=== PATIENT | male | born 1995 | race Caucasian/White ===

== ENCOUNTER → 2020-04-18 11:25 | Outpatient (BNVA) | payer OTHER, SELFPAY | PROVIDERS: PCP Internal Medicine; Visit Provider Surgery | DX: Z76.89 Persons encountering health services in other specified circumstances (principal) ==

== ENCOUNTER 2020-05-21 06:56 | Day surgery (SDC) | payer OTHER, SELFPAY ==
[2020-05-15 19:23] VITALS: BMI 33.6
--- NOTE | 2020-05-20 11:04 | P.CONAN_ITS ---
Documented by User: Valeria Bai 05/20/20 11:05 HPI - Anesthesia Eval Consult details Narrative: 25yo M for Excision Pilonidal Cyst, Sacrococcygeal Area [facility] Past Medical History Medical History Deviated nasal septum GERD (gastroesophageal reflux disease) Sacrococcygeal pilonidal cyst Family History Family History Father History of diabetes mellitus Surgical History Surgical History History of tonsillectomy History of wisdom tooth extraction Social History Social History Smoking Status: Never smoker Second Hand Smoke Exposure: No Use of substances other than those prescribed or required for medical reasons: No Advance Directives: No Advance Directives Information Provided: No Advance Directives on File: No Recently lost weight without trying: No Meds Allergies Allergy/AdvReac Type Severity Reaction Status Date / Time No Known Allergies Allergy Verified 04/18/20 11:37 Home Medications Medication Instructions Recorded Confirmed Type mupirocin 2 % topical ointment 1 applic TOPICAL BID 04/18/20 05/15/20 History Exam Exam Date and Time: May 20, 2020 1104 Height,Weight and Vital Signs: Height 6 ft 1 in Weight 115.666 kg Pertinent Lab Results Pertinent Lab Results: Laboratory Tests 04/04/20 04/04/20 16:30 16:30 WBC 8.0 Hgb 15.0 Hct 43.3 Plt Count 306 Sodium 140 Potassium 3.9 Chloride 106 BUN 14 Creatinine 0.87 Assessment and Plan Assessment Anesthesia Assessment: Chart Reviewed Documented by User: Zoë Trammell 05/21/20 08:14 [facility] Past Medical History Medical History Deviated nasal septum GERD (gastroesophageal reflux disease) Sacrococcygeal pilonidal cyst Family History Family History Father History of diabetes mellitus Surgical History Surgical History History of tonsillectomy History of wisdom tooth extraction Social History Social History Smoking Status: Never smoker Second Hand Smoke Exposure: No Use of substances other than those prescribed or required for medical reasons: No Advance Directives: No Advance Directives Information Provided: No Advance Directives on File: No Recently lost weight without trying: No Meds Allergies Allergy/AdvReac Type Severity Reaction Status Date / Time No Known Allergies Allergy Verified 04/18/20 11:37 Home Medications Medication Instructions Recorded Confirmed Type mupirocin 2 % topical ointment 1 applic TOPICAL BID 04/18/20 05/15/20 History Exam Airway Mallampati Class: II TM Dist: >3cm Neck ROM: Full Assessment and Plan Assessment Anesthesia Assessment: Anesthesia Plan Discussed and Chart Reviewed Final Anesthetic Review NPO: Yes ASA Class: II Final Preanesthetic Review: No Changes in Pt Med Stat, Meds/Allgs Chart Reviewed, Consent Obtained/Reviewed and Anes Risks/Benef Reviewed Patient Risk: Low Procedure Risk: Low Anesthetic Plan Anesthetic Plan: GA Disposition: Standard PACU
[2020-05-21] VITALS (7 sets, daily range): BP systolic 134–146; BP diastolic 74–97; PULSE 69–88; RESP 16–18; TEMP 36.3–36.7; O2SAT 94–98
[2020-05-21] MEDS: Lactated Ringers 1,000 ML 100 ML IVCONT (07:32)
--- NOTE | 2020-05-21 08:32 | P.HPSUR_ITS ---
Pre-Procedural Eval Section B Chief Complaint: Sacrococcygeal Pilonidal Cyst Details of Present Illness: for excision of pilonidal cyst, sacrococcygeal area Relevant Family History (Specify if Yes): No Relevant Social History: None Present Medications: see Short Stay Collaborative assessment Medical History: No relevant PMH Allergies: Allergies Allergy/AdvReac Type Severity Reaction Status Date / Time No Known Allergies Allergy Verified 04/18/20 11:37 Review of Systems Sugical H&P ROS: Negative: Constitution, Cardiovascular, Respiratory, Neurological, Psychiatric, Hem-Onc, Allergic/Immunologic, Gastrointestinal, Genitourinary, Musculoskeletal, Integumentary, Endocrine and Ey es/Ears/Nose/Throat Exam Surgical H&P Exam: Normal: HEENT, Normal: Heart, Normal: Lungs, Normal: Extremities, Normal: Abdomen, Normal: Skin and Normal: Neurological Plan Diagnosis/Plan: Unchanged Patient has been examined and remains a candidate for the planned procedure
[2020-05-21] MEDS: ceFAZolin Sodium/Dextrose,Iso 2 GM/50 ML PIGGYBACK IV (08:37)
--- NOTE | 2020-05-21 09:29 | PM.OP ---
Brief Operative Note Date of procedure: 05/21/20 Pre-op diagnosis: pilonidal cyst sacrococcygeal area Post-op diagnosis: same Procedure: exc of pilonidal cyst Surgeon: Omer Welsh MD Anesthesia: GETA Estimated blood loss (mL): 5 Pathology: other (pilonidal) Condition: stable Disposition: PACU
[2020-05-21] MEDS: oxyCODONE HCl Immed Release 5 MG TABLET PO (10:03)
--- NOTE | 2020-05-21 10:07 | HO.POSTANES ---
Post Anesthesia Evaluation Post Anesthesia Evaluation Vital Signs: Vital Signs Temp Pulse Resp BP Pulse Ox 05/21/20 09:57 76 18 137/87 98 05/21/20 09:49 76 18 136/86 96 05/21/20 09:40 69 18 134/86 94 05/21/20 09:35 70 18 140/97 H 97 05/21/20 09:30 97.9 F 88 16 146/96 H 98 05/21/20 07:13 98.0 F 81 16 140/74 H 98 Anesthesia: General Mental Status: Awake Pain Control: Satisfactory Nausea/Vomiting: None Hydration: Adequate Anesthesia-Related Issues: No Anes. Related Issues
--- NOTE | 2020-05-21 10:23 | OP_ITS ---
SURGEON: Omer Welsh MD INDICATIONS: The patient is a 25-year-old male with note of recurrent pain, swelling, and tenderness on the sacrococcygeal area consistent with a pilonidal cyst. He wanted to proceed with excision. He understood technique of excision, and he was aware of the risks, benefits, and alternatives and had given consent. PREOPERATIVE DIAGNOSIS: Pilonidal cyst, sacrococcygeal area. POSTOPERATIVE DIAGNOSIS: Pilonidal cyst, sacrococcygeal area. PROCEDURE PERFORMED: Excision of pilonidal cyst, sacrococcygeal area. ESTIMATED BLOOD LOSS: COMPLICATIONS: ANESTHESIA: ASSISTANTS: SPECIMENS: DESCRIPTION OF PROCEDURE: He was brought to the operating room, placed in prone position under general anesthesia by laryngeal mask airway. The buttocks were retracted with a wide tape laterally. The sacrococcygeal area prepped in usual sterile fashion. Examination showed multiple sinuses within the midline representing the midline pits. There was note of some mild induration more cephalad to the left of the midline. I marked the planned line of incision to include all the sinuses and all the indurated tissue. I infiltrated the planned line of incision with lidocaine 1%. I made an elliptical incision using blade #15. This was carried down to full-thickness skin and deep subcutaneous fat using electrocautery to excise all the indurated tissue in the sinuses. We carried this down posteriorly until the entire diseased skin and subcutaneous tissue was delivered and sent as specimen. I cauterized the excision site to achieve hemostasis. Once hemostasis was ensured, proceeded to infiltrate the area with Marcaine 0.5% for postop analgesia. The incision site measured about 5 cm long and about 3.5 cm wide. I reapposed the deep subcutaneous layer with Polysorb 3-0 interrupted sutures. I closed the skin with large generous bites using nylon 2-0 vertical mattress sutures alternating with deep bites of the simple sutures. Thick dressings were applied and procedure was completed. The patient tolerated the procedure well. There were no complications noted. Initial and final counts of sponges and instruments were correct. Estimated blood loss was about 5 mL. The patient extubated without difficulty and transferred to the recovery room with stable vital signs. MD MANOLO Oden/BENNETT / [id number]
== END 2020-05-21 10:37 | disposition home or self-care (01) ==
PROVIDERS: PCP Internal Medicine; Visit Provider Surgery
PROC: (CPT 11771; principal; 2020-05-21 08:20)
DX: L05.91 Pilonidal cyst without abscess (principal)
CPT/HCPCS: 11771; 88304; J0690; J1100; J2250; J2405; J3010

== ENCOUNTER → 2020-05-30 09:28 | Outpatient (BNVA) | payer OTHER, SELFPAY | PROVIDERS: PCP Internal Medicine; Referring Provider Internal Medicine; Visit Provider Surgery | DX: Z76.89 Persons encountering health services in other specified circumstances (principal) ==

== ENCOUNTER → 2020-06-12 08:57 | Outpatient (BNVA) | payer OTHER, SELFPAY | PROVIDERS: PCP Internal Medicine; Visit Provider Surgery | DX: Z76.89 Persons encountering health services in other specified circumstances (principal) ==

== ENCOUNTER 2020-07-17 13:01 | Outpatient (REF) | payer OTHER, SELFPAY ==
[2020-07-18 14:52] LABS: Prolactin 7.3 ng/mL (2.0-18.0)
[2020-07-22 14:27] LABS: Testosterone, Total 301 ng/dL (250-1100)
== END 2020-07-17 13:02 | disposition home or self-care (01) ==
LOC: HO.LAB 13:01
PROVIDERS: PCP Internal Medicine; Visit Provider Urology
DX: E29.1 Testicular hypofunction (principal); Z13.9 Encounter for screening, unspecified
CPT/HCPCS: 36415; 81002; 84146; 84403

== ENCOUNTER → 2020-08-08 15:01 | Outpatient (BNVA) | payer OTHER, SELFPAY | PROVIDERS: PCP Internal Medicine; Visit Provider Urology ==

== ENCOUNTER 2021-02-27 09:19 | Outpatient (REF) | payer OTHER, SELFPAY | END 2021-02-27 09:20 | disposition home or self-care (01) | LOC: HO.LAB 09:19 | PROVIDERS: PCP Internal Medicine; Visit Provider Internal Medicine | DX: Z20.822 Contact with and (suspected) exposure to COVID-19 (principal) | CPT/HCPCS: C9803; U0003; U0005 ==

== ENCOUNTER → 2021-06-10 14:32 | Outpatient (BNVA) | payer OTHER, SELFPAY | PROVIDERS: PCP Internal Medicine; Visit Provider Urology ==

== ENCOUNTER 2021-06-24 07:27 | Outpatient (REF) | payer OTHER, SELFPAY ==
[2021-06-26 00:11] LABS: Follicle Stimulating Hormone 2.7 mIU/mL (1.6-8.0); Lutenizing Hormone 2.7 mIU/mL (1.5-9.3); Prolactin 8.8 ng/mL (2.0-18.0)
[2021-06-26 01:37] LABS: Sex Hormone Binding Globulin 13 nmol/L (10-50)
[2021-06-29 20:51] LABS: Testosterone, Free 90.5 pg/mL (35.0-155.0); Testosterone, Total 348 ng/dL (250-1100)
== END 2021-06-24 07:28 | disposition home or self-care (01) ==
LOC: HO.LAB 07:27
PROVIDERS: PCP Internal Medicine; Visit Provider Urology
DX: E29.1 Testicular hypofunction (principal)
CPT/HCPCS: 36415; 83001; 83002; 84146; 84270; 84402; 84403

== ENCOUNTER → 2021-07-15 13:39 | Outpatient (BNVA) | payer OTHER, SELFPAY | PROVIDERS: PCP Internal Medicine; Visit Provider Urology ==

== ENCOUNTER → 2021-07-16 11:12 | Outpatient (BNVA) | payer OTHER, SELFPAY | PROVIDERS: PCP Internal Medicine; Visit Provider Urology ==

== ENCOUNTER → 2021-07-18 09:38 | Outpatient (BNVA) | payer OTHER, SELFPAY | PROVIDERS: PCP Internal Medicine; Visit Provider Urology ==

== ENCOUNTER 2022-06-16 12:20 | Outpatient (REF) | payer OTHER, SELFPAY ==
--- NOTE | ~2022-06-16 | XR_ITS ---
EXAMINATION: XR KNEE, RIGHT XR KNEE, LEFT CLINICAL INFORMATION: Bilateral knee pain COMPARISON: None TECHNIQUE: Right knee is imaged in 6 views. Left knee is imaged in 4 views. The series includes bilateral AP projections with weightbearing. There are a total of 10 views. FINDINGS: Right: No fracture, dislocation, destructive process, or definite suprapatellar effusion. Normal bony mineralization. No joint narrowing or erosive change or chondrocalcinosis. Axial view patella shows no lateralization or tilting. Left: No fracture, dislocation, destructive process, or effusion. Normal bony mineralization. No joint narrowing, erosive change, or chondrocalcinosis. Axial view patella shows no lateralization or tilting. XR/XR knee LT 4V IMPRESSION: -No joint narrowing or erosive change.
--- NOTE | ~2022-06-16 | XR_ITS ---
EXAMINATION: XR KNEE, RIGHT XR KNEE, LEFT CLINICAL INFORMATION: Bilateral knee pain COMPARISON: None TECHNIQUE: Right knee is imaged in 6 views. Left knee is imaged in 4 views. The series includes bilateral AP projections with weightbearing. There are a total of 10 views. FINDINGS: Right: No fracture, dislocation, destructive process, or definite suprapatellar effusion. Normal bony mineralization. No joint narrowing or erosive change or chondrocalcinosis. Axial view patella shows no lateralization or tilting. Left: No fracture, dislocation, destructive process, or effusion. Normal bony mineralization. No joint narrowing, erosive change, or chondrocalcinosis. Axial view patella shows no lateralization or tilting. XR/XR knee RT 4V IMPRESSION: -No joint narrowing or erosive change.
[2022-06-16 14:07] LABS: MANUAL DIFF FLAG NO
[2022-06-16 14:17] LABS: Basophils Absolute Auto 0.1 X10*3/uL (0.0-0.2); Basophils Percent Auto 0.8 % (0-2); Eosinophils Absolute Auto 0.1 X10*3/uL (0.0-0.4); Eosinophils Percent Auto 1.1 % (0-4); Hematocrit 46.9 % (42.0-52.0); Hemoglobin 15.9 g/dl (14.0-18.0); Imm Gran Abs Auto 0.02 X10*3/uL (0.00-0.03); Imm Gran Pct Auto 0.3 % (0.0-0.4); Lymphocytes Absolute Auto 2.5 X10*3/uL (1.2-4.9); Mean Corpuscular HGB Conc 33.9 g/dl (31.0-36.0); Mean Corpuscular Hemoglobin 27.8 pg (27.0-33.0); Mean Platelet Volume 10.3 fL (9.4-12.4); Monocytes Absolute Auto 0.5 X10*3/uL (0.1-1.2); Monocytes Percent Auto 7.3 % (2-11); Neutrophils Absolute Auto 3.9 x10*3/uL (2.0-8.3); Neutrophils Percent Auto 55.5 % (45-73); Platelet Count 307 X10*3/uL (160-400); Red Blood Count 5.72 X10*6/uL (4.60-5.80); White Blood Count 7.1 X10*3/uL (4.8-10.8)
[2022-06-16 14:54] LABS: Alanine Aminotransferase 38 U/L (0-40); Albumin Level 4.9 g/dL (3.5-5.0); Alkaline Phosphatase 57 U/L (39-117); Anion Gap 12 (12-20); Aspartate Amino Transferase 20 U/L (5-37); Blood Urea Nitrogen 13 mg/dL (9-16); Calcium 9.9 mg/dL (8.4-10.2); Carbon Dioxide 23 mmol/L (22-29); Chloride 108 mmol/L (96-108); Cholesterol 183 mg/dL; Estimated Glomerular Filt Rate > 60; Glucose Fasting 91 mg/dL (60-99); HDL Cholesterol 47 mg/dL; LDL Cholesterol Calculated 114 mg/dl; Potassium 4.1 mmol/L (3.3-5.1); Sodium 139 mmol/L (135-145); Total Protein 7.7 g/dL (6.5-8.0); Triglycerides 113 mg/dL
== END 2022-06-16 12:21 | disposition home or self-care (01) ==
LOC: HO.10HDL 12:20
PROVIDERS: Visit Provider Internal Medicine
DX: Z00.00 Encounter for general adult medical examination without abnormal findings (principal); M25.561 Pain in right knee; M25.562 Pain in left knee
CPT/HCPCS: 36415; 73564; 80053; 80061; 85025

== ENCOUNTER 2023-10-11 23:16 | Emergency (ER) | payer OTHER, SELFPAY ==
--- NOTE | ~2023-10-11 | XR_ITS ---
EXAMINATION: XR ANKLE, LEFT CLINICAL INFORMATION: Injury. COMPARISON: None available. TECHNIQUE: Three views of the left ankle. FINDINGS: Significant soft tissue swelling adjacent to the lateral malleolus. No discrete fractures. Equivocal mild asymmetric widening along the lateral aspect of the ankle mortise. No unexpected radiopaque foreign bodies. XR/XR ankle LT 2V IMPRESSION: 1. Equivocal mild asymmetric widening of the lateral aspect of the ankle mortise raising the possibility of ligamentous injury. Recommend correlation with gravity stress radiographic views. 2. Significant soft tissue swelling adjacent to the lateral malleolus.
--- NOTE | ~2023-10-11 | XR_ITS ---
EXAMINATION: XR ANKLE, LEFT CLINICAL INFORMATION: Pain. COMPARISON: Previous of the same day. TECHNIQUE: AP, lateral, and mortise views of the left ankle. FINDINGS: The bone mineralization is normal. The joint spaces are maintained. No fracture is seen. There is moderate lateral soft tissue swelling. XR/XR ankle LT min 3V IMPRESSION: Moderate lateral soft tissue swelling. No fracture is seen.
[2023-10-12 00:15] VITALS: BP 138/69; PULSE 94; RESP 20; TEMP 36.8; O2SAT 97; BMI 30.3
--- NOTE | 2023-10-12 02:51 | ED.LOWEXIN ---
HPI - Extremity Injury (Lower) General Chief Complaint: Extremity Injury, Lower Stated Complaint: ankle inj Time Seen by Provider: 10/12/23 02:45 Source: patient Mode of arrival: wheelchair Limitations: no limitations History of Present Illness HPI Narrative: Patient comes to the emergency room complaining of left ankle pain. Earlier today, patient was playing basketball, states that he jumped up to should a ball, landed with his left foot on someone's foot in his ankle twisted inward. Since then, patient has been able to bear weight. Patient has noticed swelling around the lateral malleolus area. Patient denies any other injury. Related Data Home Medications Medication Instructions Recorded Confirmed mupirocin 2 % topical ointment 1 applic topical BID 04/18/20 07/17/20 Previous Rx's Medication Instructions Recorded ibuprofen 600 mg tablet 600 mg PO Q6H PRN pain #30 tabs 05/21/20 oxycodone-acetaminophen 5 mg-325 1 - 2 tab PO Q4-6H PRN pain #30 05/21/20 mg tablet (Percocet) tabs sildenafil 100 mg tablet (Viagra) 100 mg PO DAILY PRN sexual 04/17/21 activity #30 tabs ibuprofen 600 mg tablet 600 mg PO TID PRN fever or pain 10/12/23 #20 tabs Allergies Allergy/AdvReac Type Severity Reaction Status Date / Time No Known Allergies Allergy Verified 10/12/23 00:15 Review of Systems Review of Systems: Constitutional : No Weight loss, No Fever, No Chills, No Night Sweats, No Fatigue, No Malaise ENT/Mouth : No Hearing loss, No Ear Pain, No Nasal Congestion, No Sinus Pain, No Hoarseness, No sore throat, No Rhinorrhea, No Swallowing Difficulty Eyes: No Eye Pain, No Swelling, No Redness, No Foreign Body, No Discharge, No Vision Changes Cardiovascular : No Chest Pain, No SOB, No Dyspnea on Exertion, No Orthopnea, No Edema, No Palpitations Respiratory : No Cough, No Sputum, No Wheezing, No Smoke Exposure, No Dyspnea Gastrointestinal : No Nausea, No Vomiting, No Diarrhea, No Constipation, No abdominal Pain, No Hematochezia, No Melena Genitourinary : no irregular bleeding, No Dysuria, No Urinary Frequency, No Hematuria, No Urinary Incontinence, No Urgency, No Flank Pain, No Urinary Flow Changes, No Hesitancy Musculoskeletal : Complaining of left ankle pain, No Myalgias, No Joint Swelling Skin : No Skin Lesions, No rash Neuro : No Weakness, No Numbness, No Paresthesias, No Loss of Consciousness, No Dizziness, No Headache Psych : No Anxiety/Panic, No Depression, No SI/HI/AH/VH, No Social Issues, Heme/Lymph: No Bruising, No Bleeding,No Lymphadenopathy Endocrine : No Polyuria, No Polydipsia, No Temperature Intolerance [facility] Past Medical History Medical History Erectile dysfunction Hypogonadism in male GERD (gastroesophageal reflux disease) Deviated nasal septum Sacrococcygeal pilonidal cyst Surgical History History of tonsillectomy History of wisdom tooth extraction Family History Family History Father History of diabetes mellitus Social History Social History Second Hand Smoke Exposure: No Advance Directives: No Advance Directives Information Provided: Yes Physical Exam Vital Signs: Vital Signs: Last Vital Signs Temp 98.3 F 10/12/23 00:15 Pulse 94 10/12/23 00:15 Resp 20 10/12/23 00:15 BP 138/69 10/12/23 00:15 Pulse Ox 97 10/12/23 00:15 O2 Del Method Room Air 10/12/23 00:15 BMI result Body Mass Index 30.3 Const: Other: Appearance: Alert. Oriented X3. No acute distress. Eyes: Pupils equal, round and reactive to light. ENT: Pharynx normal. Neck: Normal inspection. Neck supple. No lymph nodes noted. No crepitus CVS: Normal heart rate and rhythm. Pulses normal. Normal S1 and S2 Respiratory: No respiratory distress. Breath sounds normal. No Wheezing. No rales Abdomen: Soft and nontender. No rigidity. No distention. Skin: Skin warm and dry. Normal skin color. Normal skin turgor. Extremities: Right leg within normal limits, left ankle is swollen, no significant deformity other than the swelling, pain to palpation in the lateral malleolus, mild palpation in the medial malleolus, no pain to palpation over the lateral aspect of the foot or top of the foot. Neuro: Oriented X 3. No motor deficit. No sensory deficit. Moving all extremities. No slurred speech. CN 2 through 12 grossly intact Psych: calm, cooperative, normal affect Course Course Course Narrative: -patient took ibuprofen prior to arrival -patient declined anymore medications here in the ED Medical Decision Making Medical Decision Making MDM Narrative: My interpretation of x-ray: No obvious fracture. However, radiology report concerning for ligamentous injury, widening of the lateral aspect of the ankle mortise. Recommendations: Correlation with gravity stress radiographic views which have been ordered. -x-ray reordered, no fracture, only sprain. Patient instructed to follow-up with orthopedics. -patient was given a dose of p.o. ibuprofen -patient's ankle was Haseeb wrapped -patient brought his own crutches, states that they work well for him, offered new crutches with patient respectfully declined The bone mineralization is normal. The joint spaces are maintained. No fracture is seen. There is moderate lateral soft tissue swelling. XR/XR ankle LT min 3V IMPRESSION: Moderate lateral soft tissue swelling. No fracture is seen. Differential Diagnosis Differential Diagnoses: The differential diagnosis associated with the presentation includes (Ankle sprain, subluxation, fracture, contusion) Independent Interpretation I performed an independent interpretation of an: Plain X-Ray Radiology Impression Discussion of test interpretation with radiology: I have reviewed the radiologist's reading. Radiologist Impression: FINDINGS: Significant soft tissue swelling adjacent to the lateral malleolus. No discrete fractures. Equivocal mild asymmetric widening along the lateral aspect of the ankle mortise. No unexpected radiopaque foreign bodies. XR/XR ankle LT 2V IMPRESSION: 1. Equivocal mild asymmetric widening of the lateral aspect of the ankle mortise raising the possibility of ligamentous injury. Recommend correlation with gravity stress radiographic views. 2. Significant soft tissue swelling adjacent to the lateral malleolus. Discharge Plan Discharge Clinical Impression: Ankle sprain Patient Disposition: Home, Self-Care Instructions: Ankle Sprain (ED) Additional Instructions: Please follow-up with your primary care physician tomorrow. If you have any worsening or new symptoms, please return to the emergency room or call 911 Prescriptions: New ibuprofen 600 mg tablet 600 mg PO TID PRN (Reason: fever or pain) Qty: 20 0RF No Action sildenafil [Viagra] 100 mg tablet 100 mg PO DAILY PRN (Reason: sexual activity) Qty: 30 1RF Rx Instructions: administer 30 minutes to 4 hours before activity ibuprofen 600 mg tablet 600 mg PO Q6H PRN (Reason: pain ) Qty: 30 0RF oxycodone-acetaminophen [Percocet] 5-325 mg tablet 1 - 2 tab PO Q4-6H PRN (Reason: pain) Qty: 30 0RF mupirocin 2 % ointment 1 applic topical BID Referrals: Ashkan Luong MD [Physician] - 10/18/23 Stand Alone Forms: Work/School Release
[2023-10-12] MEDS: Ibuprofen 600 MG TABLET PO (04:10)
--- NOTE | 2023-10-12 04:22 | PC.NURSE ---
Wrapped left ankle with ronan wrap per Dr. Whitlock's request prior to discharge. .
[2023-10-12 04:23] VITALS: BP 130/68; PULSE 90; RESP 18; TEMP 36.6; O2SAT 99
== END 2023-10-12 04:25 | disposition home or self-care (01) ==
PROVIDERS: Emergency Provider Emergency Medicine; PCP Internal Medicine
DX: S93.402A Sprain of unspecified ligament of left ankle, initial encounter (principal); X50.1XXA Overexertion from prolonged static or awkward postures, initial encounter; Y93.67 Activity, basketball; Y92.9 Unspecified place or not applicable; Y99.9 Unspecified external cause status
CPT/HCPCS: 73600; 73610; 99283

== ENCOUNTER 2024-03-01 08:38 | Outpatient (REF) | payer OTHER, SELFPAY ==
[2024-03-06 22:09] LABS: Testosterone, Total 305 ng/dL (250-1100)
== END 2024-03-01 08:39 | disposition home or self-care (01) ==
LOC: HO.10HDL 08:38
PROVIDERS: Visit Provider Urology
DX: E29.1 Testicular hypofunction (principal)
CPT/HCPCS: 36415; 84402; 84403

== ENCOUNTER 2024-03-15 13:21 | Outpatient (AMB) | payer BC, SELFPAY ==
--- NOTE | 2024-03-15 13:22 | MHC.OFFVIS ---
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 He is a patient of Dr. Dunn. He is seen for the following urologic conditions - low testosterone Previous discussion on pituitary restart Has low normal total T, adequate free T, low normal LH, low SHBG Does have intermittent ED probably related to sleep deprivation Viagra prescription provided Hypogonadism Prior evaluation with testosterone borderline. 08/01 300, 07/01 T 348 FSH 2.7 SH 13 BAT 260 Free 9.6, 03/04 T 305 FT 75 Discussed symptoms of low testosterone Does have decreased libido and difficulty obtaining erection On exam normal size testicles [facility] Medical History Erectile dysfunction Hypogonadism in male GERD (gastroesophageal reflux disease) Deviated nasal septum Sacrococcygeal pilonidal cyst Surgical History History of tonsillectomy History of wisdom tooth extraction Family History Father History of diabetes mellitus Social History Second Hand Smoke Exposure: No Review of Systems Const Denies chills and Denies fever(s) Card Reports no additional complaints and Denies syncope Resp Denies cough GI Denies abdominal pain and Denies heartburn Reports as per HPI and Denies change in libido Neuro Denies syncope Psych Denies change in libido Endo Denies change in libido Physical Exam Const General: cooperative, healthy appearing, comfortable and no acute distress Orientation/consciousness: patient oriented x3 HEENT Face and sinus: Yes normal facial exam Mouth: moist mucous membranes Neck Neck: Yes normal visual inspection, Yes full ROM and Yes trachea midline Chest Chest palpation & inspection: normal inspection of the chest Resp Effort & Inspection: normal respiratory effort, able to speak in complete sentences and no respiratory distress GI Inspection: Yes normal to inspection Back/Spine/Pelvis Cervical Spine: normal cervical lordosis Thoracic/Lumbar Spine: thoracic and lumbar spine normal to inspection Skin General skin exam: no rashes or lesions noted Neuro General: patient oriented x3, gait normal, tone normal and moves all extremities Extrem General: Yes normal to inspection and Yes capillary refill normal Assessment & Plan Assessment & Plan (1) Hypogonadism in male: Code(s): E29.1 - Testicular hypofunction Category: Medical (2) Erectile dysfunction: Code(s): N52.9 - Male erectile dysfunction, unspecified Category: Medical Qualifiers: Erectile dysfunction type: unspecified Qualified Code(s): N52.9 - Male erectile dysfunction, unspecified Plan Twelve month follow-up labs Orders: Orders Testosterone, Free/Total 1 Year E29.1 - Testicular hypofunction, R68.82 - Decreased libido Lutenizing Hormone 1 Year E11.69 - Type 2 diabetes mellitus with other specified complication, E29.1 - Testicular hypofunction, N52.1 - Erectile dysfunction due to diseases classified elsewhere Medications: New sildenafil administer 60 minutes before intended activity 100 mg PO ONCE 30 days PRN 30 tabs 1RF sexual activity N52.9 - Male erectile dysfunction, unspecified Patient Instructions: Imaging studies, laboratory and physical exam results were discussed and reviewed in detail. No major barriers to patient understanding were identified. An opportunity to ask questions regarding the treatment plan was provided. All questions were answered. The patient expressed understanding and agreement with the above treatment plan. The patient is aware they should contact our office by phone for worsening of their current condition or the appearance of new urologic symptoms. Compliance is encouraged with any medications and followup testing that is ordered. It is a privilege to participate in the urologic care of your patient. If you have any questions or concerns regarding treatment for the above conditions, or other urologic issues, please do not hesitate to contact me. The office telephone contact is [phone]. This note is constructed using voice recognition software. While every effort has been made to ensure accuracy aviation operations specialist errors may have been included. Yours sincerely, Dr Rey Avalos MD, [facility] - Urology Providers of Expert, Compassionate Care for the Genitourinary System Coding Level of Care Code Est Pt Level 4 (63479) Diagnoses Hypogonadism in male E29.1 Erectile dysfunction, unspecified erectile dysfunction type N52.9 Erectile dysfunction type: unspecified
== END 2024-03-15 14:03 | disposition home or self-care (01) ==
PROVIDERS: PCP Internal Medicine; Visit Provider Urology
DX: E29.1 Testicular hypofunction (principal); N52.9 Male erectile dysfunction, unspecified
CPT/HCPCS: 99214

== ENCOUNTER → 2024-03-15 13:21 | Outpatient (BNVA) | payer BC, SELFPAY | PROVIDERS: PCP Internal Medicine; Visit Provider Urology ==

== ENCOUNTER 2024-05-13 10:59 | Outpatient (AMB) | payer BC, SELFPAY ==
[2024-05-13 11:06] VITALS: BP 130/70; PULSE 73; TEMP 36.7; O2SAT 97; BMI 30.3
--- NOTE | 2024-05-13 11:06 | AM.OFFWIN_ITS ---
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 He reports that he has a history of a broken nose with chronic nasal septum deviation which creates chronic nasal pressure of what she usually treats with Sudafed. He wondered if the sensation that he was having had anything to do with that therefore he did take Sudafed yesterday however he did not have a change in his symptoms. He also then tried DayQuil and NyQuil even though he was not feeling ill to see if this would help. This did also not help. Denies any chest pain, shortness of breath. He denies any chest trauma, recent travel, prolonged immobility, history of blood clots. He denies a history of asthma. Exam Awake alert oriented no acute distress Nares patent, turbinates edematous worse on the right, nasal septum deviation Pharynx within normal limits Mucous membranes moist Regular rate and rhythm Lung sounds clear to auscultation bilat. No cough, no shortness a breath. Plan Chest x-ray today as patient has mild anxiety. Do this to reassure, results within normal limits. See below. Treat his symptoms with Flonase, prednisone. He did ask for an inhaler as well. I have sent in a prescription for albuterol of which he can use as needed. Patient was made aware that I will call him later with a chest x-ray results only if positive. I have CC these results to his primary care provider. If the above does not help resolve his symptoms I have advised for him to follow up with his primary care provider or return to the clinic for further evaluation and treatment. This note is constructed using voice recognition software. While every effort has been made to ensure accuracy in physical therapy asst, still errors may have been included Sometimes, these errors may affect the content or meaning of the given sentence . Total time spent caring for the patient today was 30 minutes. This includes time spent before the visit reviewing the chart, time spent during the visit, and time spent after the visit on documentation [facility] [place] Medical History (Updated 05/13/24 @ 11:35 by KENNEDY Chapman) Erectile dysfunction Hypogonadism in male GERD (gastroesophageal reflux disease) Deviated nasal septum Sacrococcygeal pilonidal cyst Surgical History History of wisdom tooth extraction History of tonsillectomy Family History Father History of diabetes mellitus Social History Patient Tobacco Use Status: Never used Tobacco Second Hand Smoke Exposure: No Physical Exam Vital Signs: Last Vital Signs Temp 98.0 F 05/13/24 11:06 Pulse 73 05/13/24 11:06 BP 130/70 05/13/24 11:06 Pulse Ox 97 05/13/24 11:06 BMI result Body Mass Index 30.3 Results Reviewed Results Reviewed: [facility] [address] [place] [address] [place] [address] XRay Report Signed Patient: Tutu Odonnell MR#: [id number] : 1995 Acct:[id number] Age/Sex: 29 / M ADM Date: 05/13/24 Loc: .[facility] Attending Dr: Adri BENAVIDES Ordering Physician: Adri Broderick Date of Service: 05/13/24 Procedure(s): XR chest 2V Accession Number(s): [id number] cc: Omer Dunn MD; Adri Broderick~ EXAMINATION: XR CHEST CLINICAL INFORMATION: Shortness of breath. COMPARISON: None available. TECHNIQUE: 2 views of the chest were obtained. FINDINGS: No significant abnormality is noted involving the heart, lungs, mediastinum, bony thorax or soft tissues. XR/XR chest 2V IMPRESSION: Unremarkable examination. 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 (2) Deviated nasal septum: Code(s): J34.2 - Deviated nasal septum Plan: . (3) Anxiety about health: Code(s): R45.89 - Other symptoms and signs involving emotional state Plan . Orders: Orders XR chest 2V Today R06.02 - Shortness of breath Medications: New albuterol sulfate 90 mcg/actuation 2 puffs inhalation Q4-6H 30 days PRN 8.5 grams 0RF shortness of breath or wheezing prednisone 40 mg (2 x 20 mg) PO DAILY 10 tabs 0RF fluticasone propionate 50 mcg/actuation administer into each nostril 1 spray intranasal BID 16 grams 0RF Coding Level of Care Code Est Pt Level 4 (41744) Diagnoses Shortness of breath R06.02 Deviated nasal septum J34.2 Anxiety about health R45.89
== END 2024-05-13 11:36 | disposition home or self-care (01) ==
PROVIDERS: PCP Internal Medicine; Visit Provider Nurse Practitioner Family
DX: R06.02 Shortness of breath (principal); J34.2 Deviated nasal septum; R45.89 Other symptoms and signs involving emotional state

== ENCOUNTER → 2024-05-13 10:59 | Outpatient (BNVA) | payer BC, SELFPAY | PROVIDERS: PCP Internal Medicine ==

== ENCOUNTER 2024-05-13 11:34 | Outpatient (REF) | payer BC, SELFPAY ==
--- NOTE | ~2024-05-13 | XR_ITS ---
EXAMINATION: XR CHEST CLINICAL INFORMATION: Shortness of breath. COMPARISON: None available. TECHNIQUE: 2 views of the chest were obtained. FINDINGS: No significant abnormality is noted involving the heart, lungs, mediastinum, bony thorax or soft tissues. XR/XR chest 2V IMPRESSION: Unremarkable examination. Electronically signed by: Georgie Jackson MD 05/13/2024 12:19 PM EDT
== END 2024-05-13 11:35 | disposition home or self-care (01) ==
LOC: HO.HMGCX 11:34
PROVIDERS: PCP Internal Medicine; Visit Provider Nurse Practitioner Family
DX: R06.02 Shortness of breath (principal)
CPT/HCPCS: 71046

== ENCOUNTER 2025-02-06 10:49 | Outpatient (AMB) | payer BC, SELFPAY ==
--- NOTE | 2025-02-06 10:53 | A.OFFPC_ITS ---
Vital Signs 02/06/25 11:02 Height 6 ft 1 in Weight 257 lb 4 oz BMI 33.9 BP 150/80 H Blood Pressure Location Lt brachial Position Sitting Respiration 13 Pulse 78 Pulse Source Pulse Oximeter Temp 97.1 F Temp Source Oral Pulse Oximetry (%) 98 Oxygen Delivery Method Room Air Intake Visit Reasons: CPE Intake Note: New patient to establish care and cpe Senior Risk Analyst Required: No Allergies No Known Allergies Allergy (Verified 02/06/25 11:12) Medication List - Last Reconciled 02/06/25 by RAHAT ChapmanP- albuterol sulfate 90 mcg/actuation 2 puffs inhalation Q4-6H PRN 30 days fluticasone propionate 50 mcg/actuation 1 spray intranasal BID prednisone 40 mg (2 x 20 mg) PO DAILY sildenafil (Viagra) 100 mg PO DAILY PRN Tobacco use date assessed: 02/06/25 Dental Screening Dental Screen Date: 02/06/25 Did you have a dental visit in the last 12 months?: Yes Did you have a dental problem in the last 6 months where you did not have access to dental care?: No Was dental information given to patient?: Patient has dentist HPI HPI Comments History of Present Illness Details 29 y/o M with erectile dysfunction, Hypo gonadism in male, GERD, Deviated nasal septum, HOWARD s/p wisdom tooth extraction, tonsillectomy, Sacrococcygeal pilonidal cyst s/p excision Fhx: Dad age 66 complications of COVID/Stroke/DM; Mom alive and well. . 1 son, age 3, healthy. Social: [place] Health Maintenance Tdap 2008, updated today 02/06/2025 [facility] History of Present Illness - The patient is a 29-year-old male pres enting to establish care for a CPE - Previous PCP Dr Dunn - records rec'd and reviewed. - Obesity (BMI 33.9). - Hypogonadism and erectile dysfunction, managed with as-needed Viagra by [facility] - Previously found sinus arrhythmia on E KG. - Reports intermittent anxiety, never garcia d counseling, interested in it. - Deviated septum, using flonase w/o rel ief, would like to see ENT. - Optho blue light glasses only Health Maintenance - Tetanus vaccination last updated in 31 03; due for update. - Health maintenance includes use of [employer] portal to improve office communication. - Counseling referral offered through [facility] navigation team. - Discussion of cholesterol and hormone labs performed by other provider, reviewing necessity of cholesterol screening given the prior check in 2021. Review of Systems - General: Denies recent anxiety episode s, acknowledges interest in mental health counseling. - Head/Eyes/Ears/Nose/Throat: Reports no stril blockage, suspected deviated septum. - Cardiovascular: Denies symptoms; past evaluation showed sinus arrhythmia. - Respiratory: Denies current issues; pr evious shortness of breath noted but no recent episodes. - Gastrointestinal: Denies issues with b owel movements. - Genitourinary: Erectile dysfunction, m anaged with Viagra. - Dermatological: Denies rashes or skin issues. - Musculoskeletal: No joint or muscle pa in reported. - Neurological: Denies headaches or visi on changes. - Psychological: Denies history of couns eling, interested in future counseling. Physical Exam General: Well developed, well nourished, in no acute distress. Appears stated age. Head: Normocephalic, atraumatic. Eyes: Pupils are equal, round and reactive to light and accommodation. Conjunctivae are clear. Vision grossly normal. . Ears: TMs intact and clear s/p removal of cerumen bilat EAC, pt tolerated Nose: Patent, without discharge. Deviated septum noted R Neck: Supple, no adenopathy or thyromegaly. Breast: Edu on SBE Lungs: Clear to auscultation bilaterally. No rales, rhonchi or wheeze noted. Good air flow in all faust. Heart: Regular rate and rhythm. Sinus arrhythmia noted, which is common in young, healthy individuals. No murmurs, click, rubs or gallops are noted. Abdomen: Bowel sounds present in all quadrants. The abdomen is soft, nontender, with no masses or organomegaly noted. No hernias are noted. : Deferred. Reviewed GOOD & recommendations Pulses: Peripheral pulses are equal and palpable bilaterally. Extremities: No clubbing, cyanosis nor edema is noted. Neurologic: Gait and station normal. Cranial Nerves 2-12 intact. Motor strength grossly symmetrical and intact. No sensory loss. Balance normal. Skin: No rashes, ulcers, or lesions noted. Turgor is good. Skin color is good. Hair and nails are without abnormalities. Psych: Normal eye contact, affect and mood appropriate, and normal interactions. Patient is alert and appropriate to context. Results Pending Discussion Notes During this visit, I reviewed the patient's health history, which included obesity, hypogonadism, and erectile dysfunction. The significance of sinus arrhythmia observed in past EKGs was explained to the patient, reassuring that it is a common finding in healthy young adults. We discussed management plans for his erectile dysfunction and interests in mental health support, providing a referral to counseling services. The patient was informed of the importance of timely vaccinations, particularly the need for an updated tetanus shot. The option to perform lab tests for cholesterol and hormone levels was discussed, emphasizing the proactive monitoring of his overall health. An ENT consultation for his suspected deviated septum was offered, with advice on navigating insurance acceptance in different states. I provided guidance on utilizing the patient portal for effective communication and encouraged its use for scheduling and inquiries. Assessment and Plan 1. Obesity - Monitor and reassess BMI. 2. Hypogonadism - Continue urology management. 3. Erectile Dysfunction - Maintain PRN Viagra use. 4. Sinus Arrhythmia - Monitor with reassurance. 5. Deviated Septum - ENT referral; ensure Flonase usage. 6. Immunization - Administer tetanus vaccine. 7. Mental Health Support - Community navigator referral. 8. Patient Portal - Encourage use for communication. Screening labs today Patient Instructions - Schedule your next appointment before leaving today. - Please use the portal to communicate a nd schedule appointments. - Get labs done today - refer to ENT in [place] . - counseling referral via Navigation tea m - Call immediately if there are any sudd en changes to home medication or health issues develop. - Stay updated on your health maintenanc e, including vaccines. - Tdap today - Ears flushed today - Return 1 year for a physical, sooner a s needed Consent Patient was informed and verbally consented to the use of an ambient scribe for clinic note documentation during this visit. An additional 30 minutes was spent addressing the problem(s) noted at todays visit. This includes time spent before the visit reviewing the chart, time spent during the visit, and time spent after the visit on documentation reviewing laboratory results, diagnostic imaging, medications, performing a medically necessary evaluation, counseling on diagnoses, care coordination, ordering appropriate tests, ordering appropriate medications, review of tests performed by other providers, reporting test results with the patient, communication with other healthcare providers. [facility] Medical History (Updated 02/06/25 @ 11:48 by KENNEDY Chapman) Deviated nasal septum Erectile dysfunction GERD (gastroesophageal reflux disease) Hypogonadism in male No pertinent past medical history Sacrococcygeal pilonidal cyst Surgical History (Updated 02/06/25 @ 11:12 by KENNEDY Chapman) History of tonsillectomy History of wisdom tooth extraction S/P pilonidal cyst excision Family History (Updated 02/06/25 @ 10:55 by Tatyana Bryant MA) Father History of diabetes mellitus Social History (Updated 02/06/25 @ 11:06 by Tatyana Bryant MA) Household Members: Spouse Both parents involved: No Caregiver staying overnight: No Housing: House Are you a primary home day care provider to a significant other at home: No Do you presently have visiting nurse or other home services: No 75 years or older and lives alone: No Alcohol intake: current Alcohol intake frequency: a few times a month Patient Tobacco Use Status: Never used Tobacco e-Cigarette/Vaping Use: Never Used Second Hand Smoke Exposure: No service: No Current occupational status: employed Current occupation: [employer] Current occupational exposures/hazards: No Cognitive needs: No Hearing needs: No Vision needs: No Questionnaire PHQ-9 Over the last 2 weeks, how often have you been bothered by any of the following problems? 1. Little interest or pleasure in doing things: several days 2. Feeling down, depressed, or hopeless: several days 3. Trouble falling or staying asleep, or sleeping too much: not at all 4. Feeling tired or having little energy: not at all 5. Poor appetite or overeating: not at all 6. Feeling bad about yourself - or that you are a failure or have let yourself or your family down: several days 7. Trouble concentrating on things, such as reading the newspaper or watching television: not at all 8. Moving or speaking so slowly that other people could have noticed. Or the opposite - being so fidgety or restless that you have been moving around a lot more than usual: not at all 9. Thoughts that you would be better off or of hurting yourself in some way: not at all Total score: 3 Depression Screening Interpretation: Negative Depression Screening Done: Yes 31314 - PHQ-9 Billing: Yes Source: Developed by Drs. Luis Lugo, Emelia Hopkins, Jose Monteiro and colleagues, with an educational phil from [employer]. Thrive Questionnaire Date Thrive assessed: 02/06/25 I am a: Patient What is your living situation today?: I have a steady place to live Within the past 12 months, did the food you bought not last and you didn't have the money to get more?: Never true Within the past 12 months, did you worry whether your food would run out before you got money to buy more?: Never true Do you have trouble paying for medicines?: No Do you have trouble getting transportation to medical appointments?: No Do you have trouble paying your heating and electricity bill?: No Do you have trouble taking care of your child, family member or friend?: No Do you have trouble with day-to-day activities such as bathing, preparing meals, shopping, managing finances, etc.?: No Are you currently unemployed and looking for a job?: No Are you interested in more education?: Yes Please select the resources that you would like help with: None Currently or been in a relationship where the following occur: No concerns reported THRIVE Score: 0 AUDIT C Alcohol Use Questionnaire (AUDIT-C) 1. How often do you have a drink containing alcohol?: 2-4 times a month 2. How many drinks containing alcohol do you have on a typical day when you are drinking?: 5 or 6 3. How often do you have six or more drinks on one occasion?: Less than monthly Total Score: 5 Score Reviewed/Action Taken: Yes HOWARD-7 AMB Questionnaire HOWARD-7 Date HOWARD - 7 assessed: 02/06/25 Feeling nervous, anxious, or on edge: 1 = Several days Not being able to stop or control worryin = Several days Worrying too much about different things: 1 = Several days Trouble relaxin = Several days Being so restless that it is hard to sit still: 0 = Not at all Becoming easily annoyed or irritable: 1 = Several days Feeling afraid as if something awful might happen: 1 = Several days Total HOWARD-7 score (0-4 normal; 5-9 mild; 10-14 moderate; 15-21 severe): 6 Source: Developed by Drs. Luis Lugo, Emelia Hopkins, Jose Monteiro and colleagues, with an educational phil from [employer]. OHWARD-7 Assessment Billing HOWARD-7 Assessment Tool: HOWARD-7 Assessment 47527 Physical exam (Primary Care) Vital Signs: Last Vital Signs Temp 97.1 F 02/06/25 11:02 Pulse 78 02/06/25 11:02 Resp 13 02/06/25 11:02 BP 150/80 H 02/06/25 11:02 Pulse Ox 98 02/06/25 11:02 Oxygen Delivery Method Room Air 02/06/25 11:02 BMI result Body Mass Index 33.9 BMI Assessment/Plan discussion: High BMI High, discussed plan: lifestyle Tobacco/Smoking Status: Tobacco use Status Tobacco use date assessed 02/06/25 02/06/25 10:58 Patient Tobacco Use Status Never used Tobacco 02/06/25 11:06 e-Cigarette/Vaping Use Never Used 02/06/25 11:06 PHQ-9: PHQ-9 Score PHQ-9: Total score 3 02/06/25 10:55 Depression Screening Interpretation: Negative Thrive Assessment: Date of Thrive Assessment Date Thrive assessed 02/06/25 02/06/25 10:55 Currently or been in a relationship where the following occur: No concerns reported Office Procedures Cerumen Removal From which ear canal was the cerumen removed: bilateral Removal: irrigation Notes: patient tolerated procedure well, no complications and ear canal clear [id number] Irrigation/Lavage Coding Level of Care Code New Pt Level 3 (40951) New Pt Prev Care 18-39yr(32928 Diagnoses Encounter to establish care Z76.89 Hypogonadism in male E29.1 Erectile dysfunction, unspecified erectile dysfunction type N52.9 Erectile dysfunction type: unspecified Deviated nasal septum J34.2 Obesity (BMI 30-39.9) E66.9 Laboratory exam ordered as part of routine general medical examination Z00.00 Need for Tdap vaccination Z23 Impacted cerumen, bilateral H61.23 HOWARD (generalized anxiety disorder) F41.1 Patient's father is Z84.89 Encounter for general adult medical examination without abnormal findings Z00.00 CPT Codes Office Procedure - CPT: 35897-Cus Irrigation/Lavage ([id number]) Additional Codes HOWARD-7 Assessment Billing - HOWARD-7 Assessment Tool: HOWARD-7 Assessment 56906 ([id number]) PHQ-9 - 35657 - PHQ-9 Billing: Yes ([id number]) Assessment & Plan Assessment & Plan (1) Encounter to establish care: Code(s): Z76.89 - Persons encountering health services in other specified circumstances (2) Hypogonadism in male: Code(s): E29.1 - Testicular hypofunction Category: Medical (3) Erectile dysfunction: Code(s): N52.9 - Male erectile dysfunction, unspecified Category: Medical Qualifiers: Erectile dysfunction type: unspecified Qualified Code(s): N52.9 - Male erectile dysfunction, unspecified (4) Deviated nasal septum: Code(s): J34.2 - Deviated nasal septum Category: Medical (5) Obesity (BMI 30-39.9): Code(s): E66.9 - Obesity, unspecified Category: Medical (6) Laboratory exam ordered as part of routine general medical examination: Code(s): Z00.00 - Encounter for general adult medical examination without abnormal findings Category: Medical (7) Need for Tdap vaccination: Code(s): Z23 - Encounter for immunization Category: Medical (8) Impacted cerumen, bilateral: Code(s): H61.23 - Impacted cerumen, bilateral (9) HOWARD (generalized anxiety disorder): Code(s): F41.1 - Generalized anxiety disorder Category: Medical (10) Patient's father is : Code(s): Z84.89 - Family history of other specified conditions Category: Medical (11) Encounter for general adult medical examination without abnormal findings: Onset Date: ~02/06/25 Code(s): Z00.00 - Encounter for general adult medical examination without abnormal findings Category: Medical Plan , Orders: Orders Complete Blood Count no Diff Today Z00.00 - Encounter for general adult medical examination without abnormal findings Comprehensive Met. Panel Today Z00.00 - Encounter for general adult medical examination without abnormal findings Hemoglobin A1c Today Z00.00 - Encounter for general adult medical examination without abnormal findings Lipid Panel Today Z00.00 - Encounter for general adult medical examination without abnormal findings Microalbumin, Random (w Creat) Today Z00.00 - Encounter for general adult medical examination without abnormal findings TSH reflex Free T4 Today Z00.00 - Encounter for general adult medical examination without abnormal findings TDaP Immunization Today Z23 - Encounter for immunization Vitamin B12 and Folate Today Z00.00 - Encounter for general adult medical examination without abnormal findings Vitamin D 25-OH Total Today Z00.00 - Encounter for general adult medical examination without abnormal findings Referrals Ear/Nose/Throat Referral J34.2 - Deviated nasal septum Nurse Navigator Referral F41.1 - Generalized anxiety disorder Medications: New Boostrix Tdap (diphth,pertus(acell),tetanus) 0.5 mL IM ONCE 0.5 mL 0RF NS Z23 - Encounter for immunization Discontinued albuterol sulfate 90 mcg/actuation Discontinued Reason: Patient Completed Course 2 puffs inhalation Q4-6H 30 days PRN 8.5 grams 0RF shortness of breath or wheezing prednisone Discontinued Reason: Patient Completed Course 40 mg (2 x 20 mg) PO DAILY 10 tabs 0RF Patient Instructions: Patient Instructions - Schedule your next appointment before leaving today. - Please use the portal to communicate and schedule appointments. - Get labs done today - refer to ENT in [place] . - counseling referral via Navigation team - Call immediately if there are any sudden changes to home medication or health issues develop. - Stay updated on your health maintenance, including vaccines. - Tdap today - Ears flushed today - Return 1 year for a physical, sooner as needed Health screenings for men You should visit your health care provider regularly, even if you feel healthy. The purpose of these visits is to: Screen for medical issues Assess your risk for future medical problems Encourage a healthy lifestyle Update vaccinations and other preventive care services Help you get to know your provider in case of an illness Information Even if you feel fine, you should still see your provider for regular checkups. These visits can help you avoid problems in the future. For example, the only way to find out if you have high blood pressure is to have it checked regularly. High blood sugar and high cholesterol level also may not have any symptoms in the early stages. Simple blood tests can check for these conditions. There are specific times when you should see your provider or receive specific health screenings. The [place] Preventive Services Task Force publishes a list of recommended screenings. Below are screening guidelines for men ages 40 to 64. BLOOD PRESSURE SCREENING Have your blood pressure checked at least once every year. Watch for blood pressure screenings in your area. Ask your provider if you can stop in to have your blood pressure checked. Ask your provider if you need your blood pressure checked more often if: You have diabetes, heart disease, kidney problems, or are overweight or have certain other health conditions You have a first-degree relative with high blood pressure You are Black Your blood pressure top number is from 120 to 129 mm Hg, or the bottom number is from 70 to 79 mm Hg If the top number is 130 mm Hg or greater or the bottom number is 80 mm Hg or greater, this is considered stage 1 hypertension. Schedule an appointment with your provider to learn how you can lower your blood pressure. Effects of age on blood pressure CHOLESTEROL SCREENING Cholesterol screening should begin at age 35 for men with no known risk factors for coronary heart disease. Repeat cholesterol screening should take place: Every 5 years for men with normal cholesterol levels More often if changes occur in lifestyle (including weight gain and diet) More often if you have diabetes, heart disease, kidney problems, or certain other conditions COLORECTAL CANCER SCREENING If you are under age 45, talk to your provider about getting screened. You may need to be screened if you have a strong family history of colon cancer or polyps. Screening may also be considered if you have risk factors such as a history of inflammatory bowel disease or polyps. If you are age 45 to 75, you should be screened for colorectal cancer. There are several screening tests available: A stool-based fecal occult blood (gFOBT) or fecal immunochemical test (FIT) every year A stool sDNA test every 1 to 3 years Flexible sigmoidoscopy every 5 years or every 10 years with stool testing FIT done every year CT colonography (virtual colonoscopy) every 5 years Colonoscopy every 10 years You may need a colonoscopy more often if you have risk factors for colorectal cancer, such as: Ulcerative colitis A personal or family history of colorectal cancer A history of growths in your colon called adenomatous polyps DENTAL EXAM Go to the dentist once or twice every year for an exam and cleaning. Your dentist will evaluate if you have a need for more frequent visits. DIABETES SCREENING All adults who do not have risk factors for diabetes should be screened starting at age 35 and repeated every 3 years. If you have other risk factors for diabetes, such as a first degree relative with diabetes, overweight or obesity, high blood pressure, prediabetes, or a history of heart disease, you may be tested more often. If you are overweight and have other risk factors, such as high blood pressure and are planning to become , screening is recommended. EYE EXAM Have an eye exam every 2 to 4 years ages 40 to 54 and every 1 to 3 years ages 55 to 64. Your provider may recommend more frequent eye exams if you have vision problems or glaucoma risk. Have an eye exam that includes an examination of your retina (back of your eye) at least every year if you have diabetes. IMMUNIZATIONS Commonly needed vaccines include: Flu shot: get one every year COVID-19 vaccine: ask your provider what is best for you Tetanus-diphtheria and acellular pertussis (Tdap) vaccine: have as one of your tetanus-diphtheria vaccines if you did not receive it as an adolescent Tetanus-diphtheria: have a booster (or Tdap) every 10 years Varicella vaccine: receive 2 doses if you never had chickenpox or the varicella vaccine and were born in 1979 or after Hepatitis B vaccine: receive 2, 3, or 4 doses, depending on your exact circumstances, if you did not receive these as a child or adolescent, until age 59 Shingles (herpes zoster) vaccine: at or after age 50 Ask your provider if you should receive other immunizations, especially if you have certain medical conditions, such as diabetes or are at increased risk for some diseases such as pneumonia. INFECTIOUS DISEASE SCREENING Screening for hepatitis C: all adults ages 18 to 79 should get a one-time test for hepatitis C. Screening for human immunodeficiency virus (HIV): all people ages 15 to 65 should get a one-time test for HIV. Depending on your lifestyle and medical history, you may need to be screened for infections such as syphilis, chlamydia, and other infections. LUNG CANCER SCREENING You should have an annual screening for lung cancer with low-dose computed tomography (LDCT) if: You are age 50 to 80 years AND You have a 20 pack-year smoking history AND You currently smoke or have quit within the past 15 years OSTEOPOROSIS SCREENING If you are age 50 to 64 and have risk factors for osteoporosis, you should discuss screening with your provider. Risk factors can include long-term steroid use, low body weight, smoking, heavy alcohol use, having a fracture after age 50, or a family history of hip fracture or osteoporosis. Osteoporosis PHYSICAL EXAM All adults should visit their provider from time to time, even if they are healthy. The purpose of these visits is to: Screen for diseases Assess risk of future medical problems Encourage a healthy lifestyle Update vaccinations and other preventive care services Maintain a relationship with a provider in case of an illness Your height, weight, and body mass index (BMI) should be checked at every exam. During your exam, your provider may ask you about: Depression and anxiety Diet and exercise Alcohol and tobacco use Safety, such as use of seat belts and smoke detectors Your medicines and risk for interactions PROSTATE CANCER SCREENING If you're 55 through 69 years old, before having the test, talk to your provider about the pros and cons of having a PSA test. Ask about: Whether screening decreases your chance of dying from prostate cancer. Whether there is any harm from prostate cancer screening, such as side effects from testing or overtreatment of cancer when discovered. Whether you have a higher risk of prostate cancer than others. If you are age 55 or younger, screening is not generally recommended. You should talk with your provider about if you have a higher risk for prostate cancer. Risk factors include: Having a family history of prostate cancer (especially a brother or father) Being If you choose to be tested, the PSA blood test is repeated over time (yearly or less often), though the best frequency is not known. Prostate examinations are no longer routinely done on men with no symptoms. Prostate cancer SKIN EXAM Your provider may check your skin for signs of skin cancer, especially if you're at high risk. People at high risk include those who have had skin cancer before, have close relatives with skin cancer, or have a weakened immune system. TESTICULAR EXAM The [place] Preventive Services Task Force (USPSTF) now recommends against performing testicular self-exams. Doing testicular self-exams has been shown to have little to no benefit. Walk-In Care (Urgent Care): We Make it Easy Walk-in for urgent medical issues such as: ? Seasonal Allergies ? Insect Bites ? Cough ? Diarrhea ? Acute Asthma Attacks ? Back, Knee or Joint Pain ? Ear Infection ? Fever without a Rash ? Headaches ? Nausea ? [place], Rash or Skin Irritation ? Sore Throat ? Sports Physicals ? Vomiting Most insurances are accepted. Patients do not need to be part of the [facility] to seek care at the walk-in clinic. Locations [facility] [address]annette [address], [place] [address] ? [phone] [facility] in [place] provides services to ages 18 and over. Open Wednesday-Wednesday: 8 a.m. to 5 p.m. and Wednesday: 9 a.m. to 3 p.m.* *Hours may vary due to staffing availability. To confirm Walk-In Care hours in [place], please call [phone]. [address] [place] [address] ? [phone] [facility] Walk-In Care in [place] provides services to ages 12 and over. Open Wednesday-Wednesday: 8 a.m. to 5 p.m. Hours may vary due to staffing availability. To confirm Walk-In Care hours in [place], please call [phone]. LABORATORY SERVICES: [facility] ? Primary Location [address] [place] [address] Wednesday through Wednesday 6:00 AM ? 5:00 PM Wednesday 7:00 AM ? 11:00 AM* [phone] The [facility] is centrally located near the front entrance of the [facility] for easy outpatient access. Convenient parking is provided for outpatients. *Hours may vary due to staffing availability. To confirm Laboratory hours for any location, please call [phone]. Offsite Location For your convenience, we offer offsite laboratory draw stations at the following locations: [address] [place] [address] ? [address], [address] Wednesday through Wednesday 7:30 AM ? 1:00 PM* [phone] *Hours may vary due to staffing availability. To confirm Laboratory hours for any location, please call [phone]. [place] ? [address] Wednesday through Wednesday 6:00 AM ? 3:30 PM* Wednesday 6:30 AM ? 3 PM* [phone] *Hours may vary due to staffing availability. To confirm Laboratory hours for any location, please call [phone] [place] [address] Wednesday through Wednesday 7:30 AM ? 4:00 PM* [phone] *Hours may vary due to staffing availability. To confirm Laboratory hours for any location, please call [phone] [place] [address] Wednesday through 9:00 AM ? 4:00 PM* *Hours may vary due to staffing availability. To confirm Laboratory hours for any location, please call [phone]. Appointments are not necessary. Walk-ins are welcome. Like all the departments throughout the [facility], our Lab undergoes frequent reviews to ensure the quality and accuracy of test results, and our staff takes special pride in its status as a nationally accredited facility. Patient Portal: ONE PATIENT. ONE RECORD. BETTER CARE. [facility] has a fully integrated, cutting- edge mobile electronic health information system that has revolutionized the way we care for our patients and manage our organization. This system improves communication and coordination enabling us to provide safe, higher-quality care, and an overall positive experience for staff and patients. Our first priority, as always, is to deliver the highest quality care possible. The system is running in the background supporting that priority. This portal is for all [facility] and [facility] services and practices. If you are experiencing any technical difficulties with enrolling or logging into the Patient Portal please complete the [facility] Patient Portal Technical Support Form. [facility] now offers a new secure on-line interactive tool for patients to review their health information ? ?Patient Portal. This interactive web portal will enable patients and their families to take an active role in their care by providing easy, secure access to their health information via the internet. The Patient Portal provides patients with instant access to their health information, including laboratory results, medications, allergies, demographic information, visit history, and more. In addition to managing their own care, parents and health care proxies with authorized consent will appreciate the ability to access the records of those individuals for whom they provide care. Please note: if you wish to gain access (Proxy) to another patient?s portal, you will be required to come to the Medical Records Department in person at [facility]. Both the patient giving proxy access and the proxy will need to provide photo identification and complete the appropriate authorization. The Patient Portal also allows track their appointments online. The [facility] Patient Portal also saves patients time by allowing them to submit updates to their demographic and contact information prior to their visits. Portal email notifications will also alert patients to any new activity on their portal, such as test results and new appointments. In order to initially enroll in the [facility] Patient Portal, you will need to enter some required information including the following: * your [facility] Medical Record number * your personal home email address * name * date of Please note: In order to enroll in the [facility] Patient Portal, we need to have your email address on file in your electronic medical record. ?The email address needs to be specific for one person (yourself) in order for your Portal enrollment to be successful. ?You can update your email address in person with our Registration staff when you are registering for a hospital visit. ?Otherwise, you will need to come to the Health Information Management (Medical Records) Department at [facility]. ?We are open from Wednesday ? Wednesday from 7:30 a.m. ? 4:30 p.m. ?You will be required to present a photo id. Once you have successfully enrolled in the Patient Portal, you will receive a one-time user id and password for the Portal, sent to your email address. ?This will allow you to log into the Patient Portal within 99 hrs and reset your own logon id and password, and define personal security questions. ?Once your permanent login and password have been set, you can log into the [facility] Patient Portal at any time via the blue button above or from the Portal Logon button on any page of the [facility] website. [facility] and [facility] encourage all of our patients to enroll in Patient Portal as it presents a valuable opportunity for patients and their families to actively participate in their care and stay healthy Welcome to [facility]. ?We look forward to working with you.
[2025-02-06 11:02] VITALS: BP 150/80; PULSE 78; RESP 13; TEMP 36.2; O2SAT 98; BMI 33.9
== END 2025-02-06 12:02 | disposition home or self-care (01) ==
LOC: HO.HMCFM 10:50
PROVIDERS: PCP Nurse Practitioner Family; Visit Provider Nurse Practitioner Family
DX: Z00.00 Encounter for general adult medical examination without abnormal findings (principal); E29.1 Testicular hypofunction; E66.9 Obesity, unspecified; Z68.33 Body mass index [BMI] 33.0-33.9, adult; N52.9 Male erectile dysfunction, unspecified; J34.2 Deviated nasal septum; Z76.89 Persons encountering health services in other specified circumstances; Z23 Encounter for immunization; H61.23 Impacted cerumen, bilateral; F41.1 Generalized anxiety disorder; Z84.89 Family history of other specified conditions

== ENCOUNTER → 2025-02-06 10:49 | Outpatient (BNVA) | payer BC, SELFPAY | PROVIDERS: PCP Nurse Practitioner Family; Visit Provider Nurse Practitioner Family | DX: Z00.00 Encounter for general adult medical examination without abnormal findings (principal); Z76.89 Persons encountering health services in other specified circumstances; Z23 Encounter for immunization; E29.1 Testicular hypofunction; N52.9 Male erectile dysfunction, unspecified; J34.2 Deviated nasal septum; E66.9 Obesity, unspecified; Z68.33 Body mass index [BMI] 33.0-33.9, adult; H61.23 Impacted cerumen, bilateral; F41.1 Generalized anxiety disorder; Z84.89 Family history of other specified conditions; Z13.31 Encounter for screening for depression; Z13.39 Encounter for screening examination for other mental health and behavioral disorders | CPT/HCPCS: 69209; 90471; 90715; 96127 ==

== ENCOUNTER 2025-03-07 08:08 | Outpatient (REF) | payer BC, SELFPAY ==
[2025-03-07 08:40] LABS: Hematocrit 44.0 % (42.0-52.0); Hemoglobin 15.1 g/dl (14.0-18.0); Mean Corpuscular HGB Conc 34.3 g/dl (31.0-36.0); Mean Corpuscular Hemoglobin 28.2 pg (27.0-33.0); Mean Corpuscular Volume 82.1 fL (80.0-98.0); NRBC Abs Auto 0.000 X10*3/uL (0.0-0.012); NRBC Pct Auto 0.0 /100WBC (0.0-0.2); Platelet Count 269 X10*3/uL (160-400); Red Blood Count 5.36 X10*6/uL (4.60-5.80); White Blood Count 6.3 X10*3/uL (4.8-10.8)
[2025-03-07 08:50] LABS: Hemoglobin A1C 124.1096 umol/L; Total Hemoglobin (HGBA1C) 3915.2358 umol/L
[2025-03-07 09:37] LABS: Alanine Aminotransferase 13 U/L (0-40); Albumin Level 5.0 g/dL (3.5-5.0); Alkaline Phosphatase 53 U/L (39-117); Anion Gap 13 (12-20); Aspartate Amino Transferase 16 U/L (5-37); Blood Urea Nitrogen 13 mg/dL (9-16); Calcium 9.6 mg/dL (8.4-10.2); Carbon Dioxide 24 mmol/L (22-29); Chloride 108 mmol/L (96-108); Cholesterol 136 mg/dL (<200); Estimated Glomerular Filt Rate > 60; HDL Cholesterol 47 mg/dL (>40); Potassium 3.9 mmol/L (3.3-5.1); Sodium 141 mmol/L (135-145); Total Protein 7.5 g/dL (6.5-8.0); Triglycerides 72 mg/dL (<150)
[2025-03-07 10:11] LABS: Folate 7.1 ng/mL (> or = 4.0); Vitamin B12 338 pg/mL (200-900)
[2025-03-07 10:47] LABS: Microalbum/Creatinine Ratio Ur 3.6 ug/mg cr (<30)
[2025-03-12 13:18] LABS: Testosterone, Free 113.2 pg/mL (35.0-155.0)
== END 2025-03-07 08:09 | disposition home or self-care (01) ==
LOC: HO.LAB 08:08
PROVIDERS: Absent Provider Nurse Practitioner Family; PCP Nurse Practitioner Family; Visit Provider Urology
DX: Z00.00 Encounter for general adult medical examination without abnormal findings (principal); E11.69 Type 2 diabetes mellitus with other specified complication; N52.1 Erectile dysfunction due to diseases classified elsewhere; E29.1 Testicular hypofunction; R68.82 Decreased libido
CPT/HCPCS: 36415; 80053; 80061; 82043; 82306; 82570; 82607; 82746; 83002; 83036; 84402; 84403; 84443; 85027

== ENCOUNTER 2025-04-25 13:39 | Outpatient (AMB) | payer BC, SELFPAY ==
--- NOTE | 2025-04-25 13:48 | A.OFFVIS_ITS ---
Intake Visit Reasons: 1yr/Follow up Intake Note: Patient is present for 1 yr follow up Urology Medication:VIAGRA Antibiotic Allergy:NONE Blood Thinner:NONE Lsbs done 03/07/25: Total Testosterone 410, LH 5.0 Apple Checker Required: No Accompanied by: Self / Same As Patient Allergies No Known Allergies Allergy (Verified 04/25/25 13:48) HPI Comments Details: Tutu is a pleasant male. He is a patient of Dr. Dunn. He is seen for the following urologic conditions - low testosterone Yearly follow-up Previous discussion on pituitary restart Has low normal total T, adequate free T, low normal LH, low SHBG Does have intermittent ED probably related to sleep deprivation Viagra prescription successful Hypogonadism Prior evaluation with testosterone borderline. 08/01 300, 07/01 T 348 FSH 2.7 SH 13 BAT 260 Free 9.6, 03/04 T 305 FT 75, 03/05 410 115 5.0 Discussed symptoms of low testosterone Does have decreased libido and difficulty obtaining erection On exam normal size testicles [facility] Medical History (Updated 03/07/25 @ 18:01 by KENNEDY Chapman) No pertinent past medical history Erectile dysfunction Hypogonadism in male GERD (gastroesophageal reflux disease) Deviated nasal septum Sacrococcygeal pilonidal cyst Surgical History (Updated 02/06/25 @ 11:12 by KENNEDY Chapman) S/P pilonidal cyst excision History of wisdom tooth extraction History of tonsillectomy Family History (Updated 02/06/25 @ 10:55 by Tatyana Bryant MA) Father History of diabetes mellitus Social History (Updated 02/06/25 @ 11:06 by Tatyana Bryant MA) Household Members: Spouse Both parents involved: No Caregiver staying overnight: No Housing: House Are you a primary care clinician to a significant other at home: No Do you presently have visiting nurse or other home services: No 75 years or older and lives alone: No Alcohol intake: current Alcohol intake frequency: a few times a month Patient Tobacco Use Status: Never used Tobacco e-Cigarette/Vaping Use: Never Used Second Hand Smoke Exposure: No service: No Current occupational status: employed 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 Current occupational exposures/hazards: No Cognitive needs: No Hearing needs: No Vision needs: No Review of Systems Const Denies chills and Denies fever(s) Card Reports no additional complaints and Denies syncope Resp Denies cough GI Denies abdominal pain and Denies heartburn Reports as per HPI and Denies change in libido Neuro Denies syncope Psych Denies change in libido Endo Denies change in libido Physical Exam Const General: cooperative, healthy appearing, comfortable and no acute distress Orientation/consciousness: patient oriented x3 HEENT Face and sinus: Yes normal facial exam Mouth: moist mucous membranes Neck Neck: Yes normal visual inspection, Yes full ROM and Yes trachea midline Chest Chest palpation & inspection: normal inspection of the chest Resp Effort & Inspection: normal respiratory effort, able to speak in complete sentences and no respiratory distress GI Inspection: Yes normal to inspection Back/Spine/Pelvis Cervical Spine: normal cervical lordosis Thoracic/Lumbar Spine: thoracic and lumbar spine normal to inspection Skin General skin exam: no rashes or lesions noted Neuro General: patient oriented x3, gait normal, tone normal and moves all extremities Extrem General: Yes normal to inspection and Yes capillary refill normal Assessment & Plan Assessment & Plan (1) Erectile dysfunction: Code(s): N52.9 - Male erectile dysfunction, unspecified Category: Medical Qualifiers: Erectile dysfunction type: unspecified Qualified Code(s): N52.9 - Male erectile dysfunction, unspecified (2) Hypogonadism in male: Code(s): E29.1 - Testicular hypofunction Category: Medical Plan Twelve month follow-up lab work Orders: Orders Testosterone, Free/Total 11 Months E29.1 - Testicular hypofunction Estrad Free (Tot Ultra + Free) 11 Months E29.1 - Testicular hypofunction Patient Instructions: This note is constructed using voice recognition software. While every effort has been made to ensure accuracy school psychology specialist errors may have been included. Imaging studies, laboratory and physical exam results were discussed and reviewed in detail. No major barriers to patient understanding were identified. An opportunity to ask questions regarding the treatment plan was provided. All questions were answered. The patient expressed understanding and agreement with the above treatment plan. The patient is aware they should contact our office by phone for worsening of their current condition or the appearance of new urologic symptoms. Compliance is encouraged with any medications and followup testing that is ordered. It is a privilege to participate in the urologic care of your patient. If you have any questions or concerns regarding treatment for the above conditions, or other urologic issues, please do not hesitate to contact me. The office telephone contact is [phone]. Sincerely, Dr Rey Avalos MD, [facility] - Urology Compassionate Specialist Care for the Genitourinary System Coding Level of Care Code Est Pt Level 4 (84584) Diagnoses Erectile dysfunction, unspecified erectile dysfunction type N52.9 Erectile dysfunction type: unspecified Hypogonadism in male E29.1
== END 2025-04-25 14:58 | disposition home or self-care (01) ==
LOC: HO.HUSH 13:39
PROVIDERS: PCP Internal Medicine; Visit Provider Urology
DX: N52.9 Male erectile dysfunction, unspecified (principal); E29.1 Testicular hypofunction
CPT/HCPCS: 99214